=== PATIENT | male | born 1980 | race Caucasian/White ===

== ENCOUNTER 2016-12-06 10:52 | Outpatient (CLI) | payer OTHER ==
[2016-12-06 11:18] LABS: BASOPHILS % 0.7 (0.0-1.5); EOSINOPHILS % 1.9 % (0.0-6.8); LYMPHOCYTES # 2.2 # k/uL (0.6-4.0); MEAN CORPUSCULAR HEMOGLOBIN 29.6 pg (28.0-34.0); MONOCYTES # 0.4 # k/uL (0.0-0.9); MONOCYTES % 5.3 % (0.0-11.0); NEUTROPHILS # 3.9 # k/uL (1.4-7.7)
[2016-12-06 11:43] LABS: eGFR (African) > 60; eGFR (Non-African) > 60
== END 2016-12-06 10:53 ==
LOC: LAB 10:52
PROVIDERS: ATTEND Physician Assistant
DX: R53.83 Other fatigue (principal)
CPT/HCPCS: 36415; 80053; 85025; 86308